=== PATIENT | female | born 1990 | race Caucasian/White ===

== ENCOUNTER 2017-07-08 05:47 | Inpatient (IN) ==
[2017-07-08] MEDS ORDERED: Vancomycin 1,250 MG in D5% in Water 250 ML IVPB STA (06:08)
--- NOTE | 2017-07-08 06:20 | Emergency Department Note ---
Disposition Clinical Impression: Abscess, Foreign body, Heroin addiction Disposition: Admitted As Inpatient Condition: Fair Referrals: NONE,PCP [Primary Care Provider] - Forms: ED Satisfaction Letter General Adult HPI - General Chief complaint: ED Skin/Abscess/Foreign Body Stated complaint: abscess to right hand Time Seen by Provider: 07/08/17 06:05 Source: patient Limitations: no limitations - History of Present Illness HPI Narrative: 3 days of pain and swelling to the dorsum of the right wrist at a site where she injected heroin. Uses about every other day, but has decreased use recently. Pain is spreading up her forearm and down her hand. No fever. No numbness, tingling or weakness in the affected hand. No drainage. No other complaints. She states that she has not had any broken needles, and is positive there is no needle fragment in the wound. Pain Scale: 8 - Related Data Allergies Allergy/AdvReac Type Severity Reaction Status Date / Time No Known Allergies Allergy Verified 07/08/17 05:50 All systems ED: reviewed and negative except as stated. Past Medical History - Past Medical History Medical history: Reports: no medical history Psychiatric history: Reports: no psych history - Social History Smoking Status: Current every day smoker Smokeless Tobacco Status: No Alcohol use: Reports: none Drug use: Reports: IV Drug Use Physical Exam Vital signs noted, please see nurses notes. General: Well-developed, well-nourished patient sitting up in bed who appears non-toxic. Head: Atraumatic, normocephalic. Eyes: Sclera anicteric. ENT: Mucous membranes moist. Respiratory: Normal respiratory pattern without respiratory distress. Skin: Warm and dry, no appreciable rash. Neurological: Awake and alert with normal speech, gait and mental status. No focal deficits or lateralizing signs. Motor and sensory function intact in all 5 fingers of the hand. Psychiatric: Normal mood and affect. Musculoskeletal: There is a fluctuant area approximately 3 cm x 2 cm on the dorsum of the right wrist with significant distal edema to the dorsum of the hand extending to the metacarpophalangeal joints and in some cases to the PIP. She is able to move and feel all fingers. There is no erythema, induration or fluctuance. No significant findings in the palmar surface of the hand. - General Limitations: no limitations General appearance: alert, in no apparent distress Course Vital Signs Temperature 98.2 F 07/08/17 05:48 Pulse Rate 107 07/08/17 05:48 Respiratory Rate 20 07/08/17 05:48 Blood Pressure 101/70 07/08/17 05:48 O2 Sat by Pulse Oximetry 96 07/08/17 05:48 Temperature 98.2 F 07/08/17 05:48 Pulse Rate 107 07/08/17 07:37 Respiratory Rate 20 07/08/17 07:37 Blood Pressure 105/60 07/08/17 07:37 O2 Sat by Pulse Oximetry 99 07/08/17 07:37 Oxygen Delivery Oxygen Delivery Room Air Medical Decision Making - MDM Narrative Medical decision making narrative: Procedure, emergency bedside soft tissue ultrasound: Procedure performed by me. Images obtained and interpreted by me. Multiple images of the hand and wrist were obtained, showing cellulitic changes both proximally and distally to to organized fluid collections. No soft tissue gas. No foreign body appreciated. Procedure, ultrasound-guided abscess incision and drainage: Procedure performed by me. Skin incision was made after local anesthesia was a business objects consultant with 2% lidocaine. #10 blade was used. As I was attempting the anterior the abscess cavity, I saw what appeared to be a small metallic foreign body, approximately 0.5 cm in length with shadowing. I caught this in a couple different planes. Again, the patient denies having any pieces of needle break off, but I have a relatively strong suspicion that there is a foreign body in this wound. Attempt was aborted at this point. X-ray was negative for foreign body, however, I remain suspicious based on my ultrasound findings. I discussed the case with orthopedics. He plans to take the patient to the OR later today. I have given her a sub-dissociative dose of ketamine for pain in addition to acetaminophen and ketorolac. He has asked that we get her admitted to medicine. I have paged hospitalist.
[2017-07-08] MEDS ORDERED: Lidocaine -MPF 2% 5 ML VIAL INFILT ONE (06:23)
[2017-07-08] MEDS ORDERED: KETAMINE IVC SCH ×2 (07:15→12:00)
[2017-07-08] MEDS ORDERED: SODIUM CHLORIDE 0.9% IVC SCH ×2 (07:15→12:00)
[2017-07-08] MEDS ORDERED: Ketorolac 15 MG/ML VIAL IVP STA (07:23)
[2017-07-08] MEDS ORDERED: *HR* Meperidine 25 MG/ML SYRINGE IVP PRN ×2 (08:57→12:00)
[2017-07-08] MEDS ORDERED: *HR* Promethazine 25 MG/ML VIAL IVP PRN ×2 (08:57→12:00)
[2017-07-08] MEDS ORDERED: Ondansetron 4 MG/2 ML VIAL IVP ONE ×2 (08:57→12:00)
--- NOTE | 2017-07-08 08:57 | Anesthesia Evaluation PreOp ---
Date of Encounter: 07/08/17 Time of Encounter: 08:55 - Past History Planned Operation: Right hand I and D Cardiac History: Denies any Significant Hx Pulmonary History: Smoker PHOTO STUDIO ASSISTANT History: Denies Any Significant HX Other Medical History: Denies Any Significant HX Anesthesia History: No Prior Anesthetic Complications, Past Anesthesia (csection , no known family hx of anesthetic complications) Alcohol Use: none Drug use: IV Drug Use Medications and Allergies No Known Home Drugs 07/08/17 [History] 3 Allergy/AdvReac Type Severity Reaction Status Date / Time No Known Allergies Allergy Verified 07/08/17 05:50 - Meds/Allergy Pre-op Review Medications Reviewed: Yes Allergies Reviewed: Yes Beta Blockers on Current Med List: No Anesthesia Exam Vital Signs/O2 Sat, Most Current Temp Pulse Resp BP Pulse Ox 98.2 F 92 16 115/73 97 07/08/17 05:48 07/08/17 08:29 07/08/17 08:29 07/08/17 08:29 07/08/17 08:29 Height: 1.68m Weight: 68kg NPO (# of Hours): 3 hours clear liquids - HEENT Pupil (Motor): Pupils equal, EOMI Mallampati: II Teeth: Normal Oral Opening: Greater than 3 - PHOTO STUDIO ASSISTANT LOC: Oriented PHOTO STUDIO ASSISTANT Motor: Normal RUE, Normal LUE, Normal RLE, Normal LLE, Normal Face PHOTO STUDIO ASSISTANT Sensory: Normal: RUE, LUE, RLE, LLE, Face - Cardiac Rhythm: Regular - Pulmonary Breath Sounds: bilateral Clear Respiratory Effort: Symmetrical Anesthesia Assess/Plan ASA Score: 2, E Modified Zainab Scale for Level of Consciousness: Cooperative, oriented, and tranquil Anesthetic Plan: General (r/b/a discussed, questions answered, consent obtained) Monitoring Plan: Standard Monitors Recovery Plan: PACU
[2017-07-08] MEDS ORDERED: Ringers Solution, Lactated 1,000 ML IVC SCH (09:00)
--- NOTE | 2017-07-08 09:05 | Orthopedic Consult Note ---
Date of Encounter: 07/08/17 Time of Encounter: 09:02 Assessment and Plan (1) Abscess Current Visit: Yes Status: Acute Diagnosis and treatment were discussed with Swathi. We will perform irrigation and debridement and the operating room to remove any foreign bodies and also clear out this abscess. Afterwards she will be admitted to the hospitalist service for antibiotics. The risks and benefits of surgery including but not limited to the risks of further infection, PE, DVT, MN, , stiffness, and need for repeat surgery were all discussed with the patient and informed consent was obtained. History of Present Illness Chief complaint: Right wrist infection HPI: Ms. Epps is a 27 year old female IV drug abuser who injects approximately every other day. She developed pain swelling and erythema over the right wrist several hours ago. She presented to the emergency department a ultrasound showed a possible metallic foreign body and multiple fluid collections consistent with abscesses. Attempts were made at irrigation and debridement in the emergency Department but they were not able to get deep enough to open up the abscess. Orthopedics was consulted for operative management with irrigation and debridement. She denies any fevers chills or sweats. Past Med Surg Social Fam HX - Past Medical History Medical history: no medical history Psychiatric history: no psych history - Social History Smoking Status: Current every day smoker Smokeless Tobacco Status: No Alcohol use: none Drug use: IV Drug Use Medications and Allergies 3 Allergy/AdvReac Type Severity Reaction Status Date / Time No Known Allergies Allergy Verified 07/08/17 05:50 All Systems Reviewed: A 10-system review of systems was performed and is negative for pertinent findings except as documented above in the HPI. Physical Exam - Constitutional Vitals: Temp Pulse Resp BP Pulse Ox 98.2 F 92 16 115/73 97 07/08/17 05:48 07/08/17 08:29 07/08/17 08:29 07/08/17 08:29 07/08/17 08:29 General appearance IM: A&O X 3 Exam: Consult Exam: Constitutional -Vitals reviewed -The patient is well developed and well nourished. -Mood is pleasant. -The patient is well groomed. Psychiatric -The patient is fully alert and oriented x 3. Respiratory: -Respiratory effort normal Abdomen: -Soft abdomen -Non tender -Non distended: Left upper extremity: -No deformities. The overlying skin is intact. No obvious signs of acute trauma. -No tenderness to palpation throughout. -No significant pain with passive motion of the shoulder, elbow, wrist, and fingers within the limits of the bed. -Able to make an "OK" sign, cross the index and long fingers, and extend the thumb. -Sensation grossly intact to light touch throughout the median, radial, and ulnar distributions. -Radial pulse is present; Fingers have good capillary refill. Right upper extremity: Open incision over the dorsal wrist with surrounding erythema Tenderness to palpation over dorsal wrist. Pain with passive range of motion at the wrist. No signs of infection extending proximally. Compartment soft. -Able to make an "OK" sign, cross the index and long fingers, and extend the thumb. -Sensation grossly intact to light touch throughout the median, radial, and ulnar distributions. -Radial pulse is present; Fingers have good capillary refill. Left lower extremity: -No deformities. The overlying skin is intact. No obvious signs of acute trauma. -No tenderness to palpation throughout. -No pain with passive motion of the hip, knee, ankle, and toes within the limits of the bed. -No pain with axial loading of the thigh. -Able to dorsiflex and plantarflex the ankle and toes. -Sensation is grossly intact to light touch throughout the sural, saphenous, superficial peroneal, and deep peroneal distributions. -Toes have good capillary refill. Right lower extremity: -No deformities. The overlying skin is intact. No obvious signs of acute trauma. -No tenderness to palpation throughout. -No pain with passive motion of the hip, knee, ankle, and toes within the limits of the bed. -No pain with axial loading of the thigh. -Able to dorsiflex and plantarflex the ankle and toes. -Sensation is grossly intact to light touch throughout the sural, saphenous, superficial peroneal, and deep peroneal distributions. -Toes have good capillary refill. Results - Labs Labs: All other labs normal. - Diagnostic results Wrist/Hand x-ray: image reviewed (No fx/dislocation. Possible metallic foreign body noted on ultrasound dorsally.) Consult Discharge Plan - Plan Referrals: NONE,PCP [Primary Care Provider] -
[2017-07-08] MEDS ORDERED: *HR* FentaNYL (PF) 100 MCG/2 ML VIAL ONE (09:16)
[2017-07-08] MEDS ORDERED: *HR* Midazolam HCl 2 MG/2 ML VIAL ONE (09:16)
[2017-07-08] MEDS ORDERED: Ondansetron 4 MG/2 ML VIAL ONE (09:16)
[2017-07-08] MEDS ORDERED: Lidocaine -MPF 2% 2 ML VIAL ONE (09:16)
[2017-07-08] MEDS ORDERED: *HR* Propofol 200 MG/20 ML VIAL IVP ONE (09:16)
[2017-07-08] MEDS ORDERED: Dexamethasone 4 MG/ML VIAL ONE (09:16)
[2017-07-08] MEDS ORDERED: Albuterol 2.5 MG/3 ML NEBULIZER ONE (09:28)
[2017-07-08] MEDS ORDERED: Albuterol 2.5 MG/3 ML NEBULIZER IH STA (09:33)
[2017-07-08] MEDS: *HR* HYDROmorphone (PF) 1 MG/ML SYRINGE IVP PRN ×2 (11:05→11:10)
--- NOTE | 2017-07-08 11:13 | Internal Med History&Physical ---
Date of Encounter: 07/08/17 Time of Encounter: 11:07 Assessment and Plan (1) Abscess Current visit: Yes Status: Acute Right wrist abscess. Likely secondary to heroin use. No lymphadenopathy. Noted upon ultrasound performed in the emergency room there was a possibility of a foreign body. Orthopedics on the board and she is in the operating room where she is getting incision and drainage done Plan: Admit as inpatient. IV antibiotics. Pain control. We will follow the recommendations from orthopedics. (2) Foreign body Current visit: Yes Status: Acute Presence of foreign body likely in the abscess area. We will get to know more details when surgery is performed (3) Heroin addiction Current visit: Yes Status: Acute Patient is known to have a heroine addiction Internal Medicine - H&P: HPI Chief complaint: Right arm pain Admitted From: Emergency Dept Plans for Post Hospital Care: Home History of present illness: PCP: No PCP Brief past medical illness: Patient does not have any known medical problems. Patient is a IV drug seeker. She takes crack cocaine/methamphetamine/hemorrhoid History of present medical illness: Patient noted that she has a worsening pain in her right wrist area since last 24 hours. Patient denies that she injected and adultreted ( Vinegar) crack cocaine on her right arm. She noticed erythematous rash along with swelling in that area which was gradually getting worse and was fluctuating in nature. She started getting excruciating pain which was not tolerable and that is the reason she decided to come to the emergency room for further evaluation. Patient denies chest pain, nausea, abdominal pain, shortness of breath and diarrhea and dizziness. Workup in the emergency room: Patient was evaluated in the emergency room. Bedside ultrasound showed metallic click in the wound. Attempts were done to incision and drainage. Orthopedics was consulted. Orthopedics will take this patient to the OR for further management in terms of incision and drainage. Reason for admission: Right arm abscess secondary to intra-abdominal venous the injection. Mary Jo history: Noncontributory Past Med Surg Social Fam HX - Past Medical History Medical history: no medical history Psychiatric history: no psych history - Social History Smoking Status: Current every day smoker Smokeless Tobacco Status: No Alcohol use: none Drug use: IV Drug Use Internal Medicine - H&P: Meds No Known Home Drugs 07/08/17 [History] 3 Allergy/AdvReac Type Severity Reaction Status Date / Time No Known Allergies Allergy Verified 07/08/17 05:50 All Systems PM: A 10-system review of systems was performed and is negative for pertinent findings except as documented above in the HPI. - Constitutional Constitutional: no chills, no fever(s), no night sweats - EENT Eyes: no change in vision, no discharge, no pain, no photophobia Ears: no ear discharge, no ear pain, no tinnitus Nose, mouth and throat: no dysphagia, no nasal discharge, no neck pain, no sore throat - Cardiovascular Cardiovascular ROS IM: no chest pain, no diaphoresis, no dyspnea, no lightheadedness, no palpitations, no syncope - Respiratory Respiratory: no cough, no dyspnea, no wheezing, no excessive phlegm production - Gastrointestinal Gastrointestinal: no abdominal pain, no diarrhea, no hematemesis, no hematochezia, no melena, no nausea, no vomiting - Genitourinary Genitourinary: no change in urinary stream, no dysuria, no flank pain, no hematuria - Musculoskeletal Musculoskeletal ROS IM: no numbness, no tingling Additional comments: Right arm abscess - Integumentary Integumentary IM: no rash, no unusual bruising - Neurological Neurological ROS: no confusion, no convulsions, no focal weakness, no numbness, no tingling, no tremor(s) - Hematologic/Lymphatic Hematologic/Lymphatic: no easy bruising - Constitutional Vitals: Temp Pulse Resp BP Pulse Ox 98.2 F 92 16 115/73 97 07/08/17 05:48 07/08/17 08:29 07/08/17 08:29 07/08/17 08:29 07/08/17 08:29 General appearance: Present: A&O X 3, pleasant, no acute distress, answers questions appropriately - Head Head exam: Present: atraumatic, normocephalic - Eye Eye exam: Present: PERRL, conjuntiva pink, sclera anicteric Pupils: Present: PERRL - Neck Neck exam general surgery: Present: supple, trachea midline. Absent: lymphadenopathy - Respiratory Respiratory exam: Present: CTAB. Absent: accessory muscle use, rales, rhonchi, wheezes - Cardiovascular Cardiovascular exam: Present: RRR, +S1, +S2. Absent: diastolic murmur, gallop, rubs, systolic murmur - GI/Abdominal GI/Abdominal exam: Present: normal bowel sounds, soft, no peritoneal signs. Absent: distended, tenderness - Extremities Exam Extremities exam: Present: warm, radial pulses palpable and symmetrical. Absent : calf tenderness, cyanotic, pedal edema Additional comments: Right wrist area on the dorsal side there is evidence of abscess. Noted multiple cuts. The area is very tender. - Neurological Exam Neurological exam: Present: CN II-XII intact, oriented X3, no focal deficits. Absent: pronater drift, facial droop, speech deficit - Skin Skin exam: Present: dry, intact
--- NOTE | 2017-07-08 11:37 | Anesthesia Evaluation Post Op ---
Date of Encounter: 07/08/17 Time of Encounter: 11:36 - Vital Signs Vital Signs: Vital Signs/O2 Sat, Most Current Temp Pulse Resp BP Pulse Ox 98.6 F 89 16 113/68 97 07/08/17 10:58 07/08/17 11:18 07/08/17 11:18 07/08/17 11:18 07/08/17 11:18 - Lungs Lungs: Clear Ascult./Percussion - Airway Airway: Non-obstructed - Cardiovascular Regular Rate - Mental Status Mental Status: Asleep with brisk response to light stimulation - Nausea Vomiting Nausea Vomiting: Not Present - Hydration Hydration: NPO - Discharge PostOp Status: Transfer Patient to floor Attestation: I have assessed this patient and find they meet discharge criteria.
[2017-07-08] MEDS ORDERED: *HR* HYDROmorphone (PF) 1 MG/ML SYRINGE IVP PRN (12:00)
[2017-07-08] MEDS: Ringers Solution, Lactated 1,000 ML IVC SCH (13:30)
[2017-07-08] MEDS: *HR* HYDROcodone/Acet 5/325 mg TABLET PO PRN ×2 (15:31→21:23)
[2017-07-08] MEDS: *HR* Morphine 2 MG/ML SYRINGE IVP PRN (18:14)
--- NOTE | 2017-07-08 19:36 | Orthopedic Operative Note ---
Date of procedure: 07/08/17 Pre-op diagnosis: Right wrist infection Post-op diagnosis: same Procedure: 1. Right wrist irrigation and debridement deep abscess 2. Right wrist arthrotomy with exploration and irrigation Indications for procedure: Ms. Epps is a 27 year old female IV drug abuser who presented to the emergency department with erythema, and swelling over the right wrist after injecting IV drugs. She had significant pain with range of motion of the wrist. A ultrasound showed a possible metallic foreign body and multiple fluid collections consistent with abscesses. Attempts were made at irrigation and debridement in the emergency Department but they were not able to get deep enough to open up the abscess. Orthopedics was consulted for operative management with irrigation and debridement. After discussing the pros and cons of treatment options including non-operative and operative intervention, the patient has elected to proceed with right wrist exploration with irrigation and debridement. The risks and benefits of the procedure were fully explained in detail, including but not limited to the risk of infection, neurovascular injury , continued pain or stiffness, failure of surgery, reinfection, or need for additional surgery, DVT, PE, general risks of anesthesia and loss of limb or life. No guarantees were given or implied and all questions were answered. The patient understood all the risks and wishes to proceed with written consent. Operative Procedure: Patient was brought back to the operating room by the anesthesia staff. Patient was transferred to the operating table. At all times during the procedure patient's head and neck and airway were protected by anesthesia. A general anesthetic was administered by anesthesia. Patient's right arm was then prepped and draped in normal sterile orthopedic fashion. Tourniquet was placed on the right upper extremity. A surgical timeout was performed confirming the correct patient, site, and side for the procedure. There was a dorsal incision had been previously made in the emergency department. This was extended both proximally and distally. A knife was used to incise the deep fascia, and then a hemostat was used to open this up. There is significant amount of gross purulence from 2 dorsal abscesses. Cultures were taken both aerobic and anaerobic. A hemostat was then used to break up the septae over the dorsum of the wrist. Curettes were used to debride any loose or necrotic tissue. The extensor retinaculum was then incised, and we approach the dorsal wrist capsule between the third and fourth compartment. We then irrigated with 3 L of normal saline to clear any purulent material from the dorsal wrist abscesses. We then made an incision over the dorsal wrist capsule to enter the wrist joint. There was a significant amount of murky fluid that came out of the wrist joint. We then again thoroughly irrigated with 3 more liters of normal saline. We did not find a needle tip during our exploration. We then repaired the extensor retinaculum with 2-0 Monocryl. The wound was then packed open with iodoform gauze. A sterile dressing was placed and the patient was placed in a splint. She was awoken by anesthesia and taken to PACU in stable condition. There were no complications. Postop plan: She will be admitted to the hospitalist service, start 3 times a day soaks tomorrow, and be on antibiotics per the hospitalist. Complications: none Anesthesia: CHRISTIE Surgeon: Dustin Kim Estimated blood loss (cc): 20 Condition: stable Disposition: PACU
[2017-07-08] MEDS ORDERED: Vancomycin 1,250 MG in D5% in Water 250 ML IVPB SCH (22:00)
[2017-07-09] MEDS: *HR* Morphine 2 MG/ML SYRINGE IVP PRN ×4 (00:11→23:10)
[2017-07-09 00:34] LABS: Alanine Aminotransferase 37 Units/L (0-55); Albumin/Globulin Ratio 0.6 (1.1-2.2); Alkaline Phosphatase 74 Units/L (38-126); Aspartate Amino Transferase 23 Units/L (5-34); BUN/Creatinine Ratio 18 (6-26); Bilirubin,Total 0.4 mg/dL (0.2-1.2); Blood Urea Nitrogen 13 mg/dL (7-20); Calcium 9.4 mg/dL (8.6-10.8); Carbon Dioxide 25 mEq/L (19-29); Chloride 105 mEq/L (98-109); Globulin 4.8 g/dL (2.4-3.5); Glucose 106 mg/dL (70-99); Osmolality,Calculated 285 (280-300); Potassium 4.2 mEq/L (3.5-4.5); Sodium 137 mEq/L (136-145); Total Protein 7.8 g/dL (6.0-8.3); eGFR For African Americans > 60 (> 60); eGFR For Non-African Americans > 60 (> 60)
[2017-07-09] MEDS ORDERED: Vancomycin 1,000 MG in D5% in Water 250 ML IVPB SCH (01:15)
--- NOTE | 2017-07-09 08:15 | Orthopedics Progress Note ---
Date of Encounter: 07/09/17 Time of Encounter: 08:13 - Assessment and Plan (1) Abscess Current Visit: Yes Status: Acute Subjective Interval history: S: Right wrist pain. Denies fevers, chills, night sweats. No other orthopedic complaints. O: AFVSS General: No acute distress Right upper extremity: Dorsal wrist wound packed open with no purulent drainage. No surrounding erythema. Diminished swelling. DNVI M/R/U A/P: Postop day 1 status post right wrist I&D Continue antibiotics per hospitalist service 3 times a day soaks daily with packing changes today Redress wound between soaks. May pull packing tomorrow Follow up in 10-14 days Objective Vital signs: Vital Signs Temp Pulse Resp BP Pulse Ox 07/09/17 07:00 98.1 F 72 14 94/52 98 07/09/17 03:30 97.8 F 70 14 101/64 97 07/08/17 21:51 98.1 F 78 14 96/57 97 07/08/17 18:32 97.8 F 77 16 105/66 94 07/08/17 18:00 97.5 F L 83 18 101/61 100 07/08/17 15:00 98.8 F 88 18 95/58 97 07/08/17 14:00 98.1 F 83 18 99/62 94 07/08/17 13:00 98.1 F 85 18 106/69 99 07/08/17 12:30 98.7 F 97 18 98/62 97 07/08/17 12:04 98.8 F 87 18 102/67 96 07/08/17 11:38 98.8 F 90 12 104/67 96 07/08/17 11:28 98.8 F 92 12 106/73 96 07/08/17 11:18 89 16 113/68 97 07/08/17 11:08 82 16 109/77 99 07/08/17 10:58 98.6 F 104 16 116/72 99 Intake and Output 07/08/17 07/09/17 07/09/17 23:59 07:59 15:59 Intake Total 600 / 600 250 / 250 Output Total 200 / 200 0 / 0 Balance 400 / 400 250 / 250 Intake: IV Fluids 250 / 250 Vancocin 1,000 MG In Dextrose 5 250 / 250 % 250 ML @ 167 mls/hr IVPB Q12H RADHA Rx#:[id number] Oral 600 / 600 0 / 0 Output: Urine 200 / 200 0 / 0 Other: Meal Dinner Percent of Meal Consumed 75% # Voids 3 2 Weight 67.721 kg Patient Weight 07/09/17 23:59 Weight 67.721 kg - Labs CBC & BMP: 07/09/17 00:09 Labs: Abnormal lab results Glucose 106 mg/dL (70-99) H 07/09/17 00:09 Albumin 3.0 g/dL (3.5-5.0) L 07/09/17 00:09 Globulin 4.8 g/dL (2.4-3.5) H 07/09/17 00:09 Albumin/Globulin Ratio 0.6 (1.1-2.2) L 07/09/17 00:09 - VTE Documentation of Mechanical Device: Intermittent pneumatic compression device Consult Discharge Plan - Plan Referrals: NONE,PCP [Primary Care Provider] -
[2017-07-09] MEDS: *HR* HYDROcodone/Acet 5/325 mg TABLET PO PRN ×2 (09:42→17:15)
[2017-07-09] MEDS: Ringers Solution, Lactated 1,000 ML IVC SCH (14:26)
--- NOTE | 2017-07-09 17:01 | Internal Med Progress Note ---
Date of Encounter: 07/09/17 Time of Encounter: 16:59 - Assessment and plan (1) Abscess Current Visit: Yes Status: Acute Assessment and plan: Right wrist infection. IND performed by orthopedics. Cultures pending. On IV antibiotics. (2) Foreign body Current Visit: Yes Status: Acute Assessment and plan: Foreign body noted on imaging. (3) Heroin addiction Current Visit: Yes Status: Acute Assessment and plan: History of heroin and meth amphetamine abuse. We will be very difficult to treat her as outpatient with IV antibiotic due to high risk. Awaiting sensitivity. Will get infectious disease consult on Monday as over the weekend ID is not available here - Subjective Interval history: Asymptomatic.no complaints. History of IV drug abuse. Admitted with right wrist infection and underwent I&D. - Constitutional Vitals: Temp Pulse Resp BP Pulse Ox 97.6 F 77 14 93/59 100 07/09/17 13:35 07/09/17 13:35 07/09/17 13:35 07/09/17 13:35 07/09/17 13:35 General appearance: Present: A&O X 3, pleasant, no acute distress, answers questions appropriately - Head Head exam: Present: atraumatic, normocephalic - Eye Eye exam: Present: PERRL, conjuntiva pink, sclera anicteric Pupils: Present: PERRL - Neck Neck exam general surgery: Present: supple, trachea midline. Absent: lymphadenopathy - Respiratory Respiratory exam: Present: CTAB. Absent: accessory muscle use, rales, rhonchi, wheezes - Cardiovascular Cardiovascular exam: Present: RRR, +S1, +S2. Absent: diastolic murmur, gallop, rubs, systolic murmur - GI/Abdominal GI/Abdominal exam: Present: normal bowel sounds, soft, no peritoneal signs. Absent: distended, tenderness - Extremities Exam Extremities exam: Present: warm, radial pulses palpable and symmetrical. Absent : calf tenderness, cyanotic, pedal edema Additional comments: Right wrist examination per surgery. Neurovascular status is stable. - Neurological Exam Neurological exam: Present: CN II-XII intact, oriented X3, no focal deficits. Absent: pronater drift, facial droop, speech deficit - Skin Skin exam: Present: dry, intact Internal Medicine: Result - Labs CBC & Chem 7: 07/09/17 00:09 Labs: BMP 07/09/17 00:09 Sodium 137 Potassium 4.2 Chloride 105 Carbon Dioxide 25 BUN 13 Creatinine 0.71 Glucose 106 H Calcium 9.4 Liver Function 07/09/17 Range/Units 00:09 Total Bilirubin 0.4 (0.2-1.2) mg/dL AST 23 (5-34) Units/L ALT 37 (0-55) Units/L Alkaline Phosphatase 74 (38-126) Units/L Albumin 3.0 L (3.5-5.0) g/dL - VTE Documentation of Mechanical Device: Intermittent pneumatic compression device Consult Discharge Plan - Plan Referrals: NONE,PCP [Primary Care Provider] -
[2017-07-09] MEDS: Vancomycin 1,000 MG in D5% in Water 250 ML IVPB SCH (17:10)
[2017-07-10 05:51] LABS: Basophils % 0.4 %; Eosinophils # 0.1 K/mcL (0.0-0.6); Hematocrit 37.7 % (35.3-44.9); Hemoglobin 12.1 g/dL (11.5-15.4); Immature Granulocytes % 0.8 % (0-4); Lymphocytes # 2.6 K/mcL (0.6-4.6); Mean Corpuscular HGB Conc 32.1 g/dL (31.6-35.5); Mean Corpuscular Hemoglobin 28.6 pg (28.0-33.3); Mean Corpuscular Volume 89.1 fL (83.0-100.0); Mean Platelet Volume 9.5 fL (9.4-12.4); Monocytes # 0.8 K/mcL (0.0-1.3); Monocytes % 8.8 %; Neutrophils # 5.7 K/mcL (1.6-8.9); Platelet Count 321 K/mcL (140-400); Red Blood Count 4.23 M/mcL (3.82-4.97); Red Cell Distribution Width 14.9 % (11.5-14.5)
[2017-07-10 06:08] LABS: Alanine Aminotransferase 35 Units/L (0-55); Albumin 2.7 g/dL (3.5-5.0); Albumin/Globulin Ratio 0.6 (1.1-2.2); Alkaline Phosphatase 61 Units/L (38-126); Aspartate Amino Transferase 23 Units/L (5-34); BUN/Creatinine Ratio 17 (6-26); Bilirubin,Total 0.3 mg/dL (0.2-1.2); Blood Urea Nitrogen 12 mg/dL (7-20); Carbon Dioxide 27 mEq/L (19-29); Chloride 106 mEq/L (98-109); Globulin 4.3 g/dL (2.4-3.5); Glucose 84 mg/dL (70-99); Osmolality,Calculated 283 (280-300); Potassium 4.1 mEq/L (3.5-4.5); Sodium 137 mEq/L (136-145); eGFR For African Americans > 60 (> 60); eGFR For Non-African Americans > 60 (> 60)
[2017-07-10] MEDS: Vancomycin 1,000 MG in D5% in Water 250 ML IVPB SCH (06:28)
[2017-07-10] MEDS: *HR* HYDROcodone/Acet 5/325 mg TABLET PO PRN ×2 (06:43→13:25)
--- NOTE | 2017-07-10 07:44 | Orthopedics Progress Note ---
Date of Encounter: 07/10/17 Time of Encounter: 07:43 - Assessment and Plan (1) Abscess Current Visit: Yes Status: Acute Subjective Interval history: S: Right wrist pain, improving. Denies fevers, chills, night sweats. No other orthopedic complaints. O: AFVSS General: No acute distress Right upper extremity: Dorsal wrist wound packed open with no purulent drainage. No surrounding erythema. Diminished swelling. DNVI M/R/U A/P: Postop day 2 status post right wrist I&D Continue antibiotics per hospitalist service 3 times a day soaks daily Pull packing today Redress wound between soaks. Follow up in 10-14 days Will sign off Objective Vital signs: Vital Signs Temp Pulse Resp BP Pulse Ox 07/10/17 00:27 98.1 F 75 14 96/63 98 07/09/17 21:14 98.2 F 80 14 94/60 98 07/09/17 13:35 97.6 F 77 14 93/59 100 07/09/17 11:13 97.9 F 71 14 95/61 100 Intake and Output 07/09/17 07/09/17 07/10/17 15:59 23:59 07:59 Intake Total 960 / 960 490 / 490 0 / 0 Output Total 400 / 400 0 / 0 Balance 560 / 560 490 / 490 0 / 0 Intake: IV Fluids 600 / 600 250 / 250 Lactated Ringers 1,000 ML @ 25 600 / 600 mls/hr IVC .Q24H [facility] Rx#: [id number] Vancocin 1,000 MG In Dextrose 5 250 / 250 % 250 ML @ 167 mls/hr IVPB Q12H [facility] Rx#:[id number] Oral 360 / 360 240 / 240 0 / 0 Output: Urine 400 / 400 0 / 0 Other: Meal Breakfast Dinner Percent of Meal Consumed 100% 100% # Voids 1 - Labs CBC & BMP: 07/10/17 05:27 07/10/17 05:27 Labs: Abnormal lab results RDW 14.9 % (11.5-14.5) H 07/10/17 05:27 Albumin 2.7 g/dL (3.5-5.0) L 07/10/17 05:27 Globulin 4.3 g/dL (2.4-3.5) H 07/10/17 05:27 Albumin/Globulin Ratio 0.6 (1.1-2.2) L 07/10/17 05:27 - VTE Documentation of Mechanical Device: Intermittent pneumatic compression device Consult Discharge Plan - Plan Referrals: NONE,PCP [Primary Care Provider] -
[2017-07-10] MEDS ORDERED: Doxycycline 100 MG CAPSULE PO SCH (15:00)
[2017-07-10 15:16] VITALS: BP 104/67
--- NOTE | 2017-07-10 15:58 | Discharge Summary ---
Date of Encounter: 07/10/17 Time of Encounter: 15:54 - Discharge Diagnosis (1) Abscess Priority: Primary Status: Acute (2) Foreign body Priority: Secondary Status: Acute (3) Heroin addiction Priority: Secondary Status: Acute - Discharge Medications Prescriptions: Clindamycin [Cleocin] 300 mg PO TID #60 capsule Tramadol HCl [Ultram] 50 mg PO TID PRN #20 tab PRN Reason: Pain Home Medications: Clindamycin [Cleocin] 300 mg PO TID #60 capsule 07/10/17 [Rx] Tramadol HCl [Ultram] 50 mg PO TID PRN #20 tab 07/10/17 [Rx] Allergies/Adverse Reactions: 3 Allergy/AdvReac Type Severity Reaction Status Date / Time No Known Allergies Allergy Verified 07/08/17 05:50 Date of admission: 07/08/17 09:44 Primary care physician: PCP NONE Discharging clinician: Polly Quiroz Anticipated date of discharge: 07/10/17 - Patient Status Disposition: Home, Self-Care Condition: Fair Overall status at discharge: patient is progressing back to baseline - Discharge Instructions Follow Up With: NONE,PCP [Primary Care Provider] - - Diet and Activity Activity: resume usual activities as tolerated Diet: advance to your usual diet (Wound care instructions per Orthopedics) Hospital course: Ms. Epps is a 27 year old female History of heroin and meth amphetamine abuse. See by Orthopedic for wrist abcess and underwent I&D. Ortho wants to see her as out patient. MRSA sensitive to Clinda on wound culture. - Time Spent with Patient Total time spent providing and/or coordinating discharge services: Greater than 30 minutes - Constitutional Vitals: Temp Pulse Resp BP Pulse Ox 98.4 F 72 15 104/67 98 07/10/17 15:08 07/10/17 15:08 07/10/17 15:08 07/10/17 15:08 07/10/17 15:08 General appearance: Present: A&O X 3, pleasant, no acute distress, answers questions appropriately - Head Head exam: Present: atraumatic, normocephalic - Eye Eye exam: Present: PERRL, conjuntiva pink, sclera anicteric Pupils: Present: PERRL - Neck Neck exam general surgery: Present: supple, trachea midline. Absent: lymphadenopathy - Respiratory Respiratory exam: Present: CTAB. Absent: accessory muscle use, rales, rhonchi, wheezes - Cardiovascular Cardiovascular exam: Present: RRR, +S1, +S2. Absent: diastolic murmur, gallop, rubs, systolic murmur - GI/Abdominal GI/Abdominal exam: Present: normal bowel sounds, soft, no peritoneal signs. Absent: distended, tenderness - Extremities Exam Extremities exam: Present: warm, radial pulses palpable and symmetrical. Absent : calf tenderness, cyanotic, pedal edema Additional comments: RIght wrist I&D. Neurovascular stable. no redness or discharge. - Neurological Exam Neurological exam: Present: CN II-XII intact, oriented X3, no focal deficits. Absent: pronater drift, facial droop, speech deficit - Skin Skin exam: Present: dry, intact - VTE Documentation of Mechanical Device: Intermittent pneumatic compression device
[2017-07-10] MEDS ORDERED: Aminoglycoside Consult 1 EACH MC ONE (16:59)
== END 2017-07-10 17:00 | disposition home or self-care (01) | DRG 951 ==
LOC: EMEROO 05:47 → 3ANU 05:47
PROVIDERS: ADMIT Internal Medicine; ATTEND Internal Medicine